=== PATIENT | male | born 1965 | race Two or more races ===

== ENCOUNTER 2017-06-24 11:30 | Emergency (ER) | payer OTHER ==
[~2017-06-24] VITALS: Ht 172.7 cm; Wt 78.0 kg
== END 2017-06-24 14:08 | disposition home or self-care (01) ==
LOC: ER 11:30
DX: R00.2 Palpitations (principal)

== ENCOUNTER 2019-04-16 16:41 | Emergency (ER) | payer OTHER ==
[~2019-04-16] VITALS: Ht 170.2 cm; Wt 78.0 kg
== END 2019-04-16 21:10 | disposition home or self-care (01) ==
LOC: ER 16:41
DX: J32.8 Other chronic sinusitis (principal); J06.9 Acute upper respiratory infection, unspecified

== ENCOUNTER 2020-02-28 00:02 | Emergency (ER) | payer OTHER ==
[~2020-02-28] VITALS: Ht 170.2 cm; Wt 78.0 kg
== END 2020-02-28 06:15 | disposition home or self-care (01) ==
LOC: ER 00:02 → CPU-OBS 00:19 → ER 00:19
DX: R07.89 Other chest pain (principal); Z03.818 Encounter for observation for suspected exposure to other biological agents ruled out
CPT/HCPCS: G0378; G0379; 93005

== ENCOUNTER 2025-01-15 03:06 | Emergency (ER) | payer OTHER ==
[~2025-01-15] VITALS: Ht 172.7 cm; Wt 81.6 kg
[2025-01-15 06:12] LABS: URINE APPEARANCE Clear; URINE BILIRRUBIN Negative (NEGATIVE); URINE BLOOD Negative; URINE COLOR Yellow; URINE GLUCOSE Negative (NEGATIVE); URINE KETONE Trace (NEGATIVE); URINE LEUKOCYTE Negative; URINE NITRATE Negative; URINE PROTEIN Negative (NEGATIVE); URINE UROBILINOGEN 0.2 E.U./dl
[2025-01-15 06:14] LABS: BASO % 1.0 % (0.1-1.2); EOS # 0.74 (0.04-0.54); EOS % 10.2 % (0.7-7.0); LYMPH # 1.72 (1.18-3.74); LYMPH % 23.8 % (19.3-53.1); MEAN PLATELET VOLUME 10.10 fl (9.4-12.4); MONO # 0.72 (0.24-0.82); MONO % 10.0 % (4.7-12.5); NEUT # 3.95 (1.56-6.13); NEUT % 54.7 % (34.0-71.1); RED CELL DISTRIBUTION WIDTH 12.5 % (11.6-14.4)
[2025-01-15 06:16] LABS: URINE BACTERIA 10.7 uL (0.0-1933); URINE RBC 2.4 uL (0.0-20.8)
[2025-01-15 06:23] LABS: URINE CAST 0.00 uL (0.0-1.40); URINE EPITHELIAL CELLS 0.9 uL (0.0-38.8); URINE WBC 1.3 uL (0.0-23.2)
[2025-01-15 06:46] LABS: ALT/SGPT 32.0 U/L (12-78); AST/SGOT 20.0 U/L (15-37); BILIRUBIN TOTAL 0.57 mg/dL (0.3-1.2); BUN CREA RATIO 15.0 (7.0-25.0); CREATININE SERUM 1.12 mg/dL (0.70-1.30); GFR 67.34; GLOBULINA 2.9 G/DL (2.4-3.5); GLUCOSE FASTING 99.0 mg/dL (65-100); OSMOLALITY SERUM 281.0 MOSM/KG (275-295)
[2025-01-15 06:56] LABS: INR 0.98
[2025-01-15] MEDS ORDERED: ORPHENADRINE CITRATE 30 MG/ML AMPUL IM STA (07:24)
[2025-01-15] MEDS ORDERED: KETOROLAC TROMETHAMINE 30 MG VIAL IM STA (07:24)
[2025-01-15] MEDS ORDERED: KETOROLAC TROMETHAMINE 60 MG VIAL IM ONE (07:46)
[2025-01-15] MEDS ORDERED: ORPHENADRINE CITRATE 30 MG/ML AMPUL ONE (07:46)
== END 2025-01-15 08:08 | disposition home or self-care (01) ==
LOC: ER 03:06
PROVIDERS: Physician Assistant Medical
DX: M94.0 Chondrocostal junction syndrome [Tietze] (principal); R07.89 Other chest pain; R53.83 Other fatigue